=== PATIENT | female | born 1985 | race Hispanic/Latino ===

== ENCOUNTER 2019-01-20 11:08 | Outpatient (CLI) | payer MEDICAID, OTHER ==
[2019-01-20 12:47] LABS: Hematocrit 40.4 % (30.3-42.9); Mean Corpuscular HGB Conc 35 % (30-34); Mean Corpuscular Volume 92 fl (79-97); Platelet Count 282 K/mm3 (140-440); Red Blood Count 4.38 M/mm3 (3.65-5.03)
[2019-01-20 13:06] LABS: Erythrocyte Sedimentation Rate 6 mm/Hr (0-20)
[2019-01-20 13:13] LABS: BUN/Creatinine Ratio 17; Blood Urea Nitrogen 10 mg/dL (7-17); Chol/HDL Ratio 2.47 %; HDL Cholesterol 71 mg/dL (40-59); Hemolysis Index 78; LDL Cholesterol,Direct 101 mg/dL (50-130)
[2019-01-24 05:41] LABS: Vitamin D, 25-OH, D2 <4 ng/mL
== END 2019-01-20 11:09 | disposition home or self-care (01) ==
LOC: LAB 11:08
PROVIDERS: ATTEND Internal Medicine
DX: Z13.220 Encounter for screening for lipoid disorders (principal); Z13.1 Encounter for screening for diabetes mellitus; Z13.21 Encounter for screening for nutritional disorder
CPT/HCPCS: 36415; 80048; 80061; 82306; 82607; 83036; 84443; 85027; 85652; 86140

== ENCOUNTER 2020-03-29 13:52 | Outpatient (CLI) | payer OTHER ==
--- NOTE | 2020-03-29 14:53 | XRay Report ---
CHEST 2 VIEWS INDICATION / CLINICAL INFORMATION: R07.9 CHEST PAIN UNSPECIFIED. COMPARISON: None available. FINDINGS: SUPPORT DEVICES: None. HEART / MEDIASTINUM: No significant abnormality. LUNGS / PLEURA: No significant pulmonary or pleural abnormality. No pneumothorax. ADDITIONAL FINDINGS: No significant additional findings. IMPRESSION: No acute cardiopulmonary abnormality. Signer Name: Johnathan Urbina MD Signed: 03/29/2020 2:48 PM Workstation Name: [id number]
== END 2020-03-29 13:53 | disposition home or self-care (01) ==
LOC: XRAY 13:52
PROVIDERS: ATTEND Internal Medicine
DX: R07.9 Chest pain, unspecified (principal)
CPT/HCPCS: 71046